=== PATIENT | male | born 1945 | race Two or more races ===

== ENCOUNTER 2018-07-13 10:32 | Outpatient (CLI) | payer OTHER | END 2018-07-13 10:37 | disposition home or self-care (01) | LOC: SONOGRAMA 10:32 | DX: R10.84 Generalized abdominal pain (principal) ==

== ENCOUNTER 2023-06-15 07:29 | Outpatient (CLI) | payer OTHER | END 2023-06-15 07:32 | disposition home or self-care (01) | LOC: NUCLEAR 07:29 | PROVIDERS: ATTEND Internal Medicine Cardiovascular Disease | DX: I25.10 Atherosclerotic heart disease of native coronary artery without angina pectoris (principal) | CPT/HCPCS: 78452; 93017; A9500 ==